=== PATIENT | male | born 1960 | race Caucasian/White ===

== ENCOUNTER 2016-11-13 21:04 | Emergency (ER) | payer OTHER ==
[2016-11-13 21:25] VITALS: TEMP 97.9; BMI 23.6
--- NOTE | 2016-11-13 21:49 | PDOC ---
History of Present Illness - General History Source: Patient Exam Limitations: No Limitations - History of Present Illness Initial Comments: 11/13/16 21:49 The patient is a 56 year old male, with significant past medical history of HIV (taken off meds 3 weeks ago while trying to switch medication under doctors supervision), who presents today via ambulance from [facility] complaining of nausea, chills, lightheadedness since 3pm. He notes that he had chills that he describes as twitching and trembling because he was so cold for 3 or 4 hours this afternoon. He notes that he had similar twitching when he was taken off of the HIV medications 3 weeks ago. Denies fever, vomiting, diarrhea. Denies chest pain, SOB. Allergies: Shrimp ROS General: +chills, lightheadedness. No fevers.no weakness, no weight loss HEENT: No change in vision. No sore throat,. No ear pain CardioVascular: No chest pain or shortness of breath Respiratory:No cough, or wheezing. Gastrointestinal: +nausea. vomiting, diarrhea or constipation, No rectal bleeding Genitourinary: No dysuria, hematuria, or frequency Musculoskeletal: No joint or muscle pain or swelling Neurologic: No headache, vertigo, dizziness or loss of consciousness Psychiatric: nor depression Skin: No rashes or easy bruising Endocrine: no increased thirst or abnormal weight change Allergic: no skin or latex allergy All other systems reviewed and normal Physical Exam General: Well-nourished well-developed individual, no acute distress HEENT: Throat: Normal, tonsils normal, no erythema or exudate Neck: Supple, no meningeal signs, no lymphadenopathy Eyes::Pupils equal reactive and round, extraocular motion intact Chest: Nontender to palpation Cardiac: S1-S2 normal, regular rate and rhythm, no murmurs rubs or gallops Respiratory: Lungs clear to auscultation bilateral Abdomen: Soft, nondistended, slightly increased bowel sounds, nontender to palpation diffusely Extremities: Warm, dry, no cyanosis, clubbing, or edema Skin: No rashes Neuro: Alert and oriented x3, nonfocal exam, grossly intact, normal gait Psych: Normal mood and affect <Brandy Foley - Last Filed: 11/13/16 21:49> - General History Source: Patient Exam Limitations: No Limitations - History of Present Illness Initial Comments: 11/13/16 22:27 A portion of this note was documented by scribe services under my direction. I have reviewed the details of the note, within reason, and agree with the documentation. The case summary and management plan written by me. Assessment and plan: This is a 56-year-old male who comes in from an urgent care center for shaking, nausea and not feeling well. By the time patient got here he was feeling better but then had another episode of similar symptoms. Patient was given some Xanax. Patient had an EKG which showed normal sinus rhythm and was completely normal Patient has history significant for HIV and was recently taken off of his HIV meds secondary to intolerable side effects and has been off meds for approximately 2-3 weeks. Patient said however his viral load is undetectable and his T cells are 800. Patient had a workup that was done which shows normal white count, normal chemistries, normal cardiac enzymes, and the normal urinalysis. Patient was referred back to his primary care doctor for follow-up tomorrow or the next day <Maritza Chandler I - Last Filed: 11/13/16 22:32> - General Chief Complaint: Nausea Stated Complaint: CHILLS AND NAUSEA Time Seen by Provider: 11/13/16 21:15 Past History <Brandy Foley - Last Filed: 11/13/16 21:49> - Past Medical History HIV: Yes Other medical history: PSORIASIS - Psycho/Social/Smoking Cessation Hx Anxiety: No Suicidal Ideation: No Smoking History: Never smoked Hx Alcohol Use: Yes (3 GLASSES OF WINE PER WEEK) Drug/Substance Use Hx: No Substance Use Type: None <Maritza Chandler I - Last Filed: 11/13/16 22:32> - Past Medical History Allergies/Adverse Reactions: Allergies Allergy/AdvReac Type Severity Reaction Status Date / Time shrimp Allergy Unknown Verified 11/13/16 21:13 walnut Allergy Unknown Verified 11/13/16 21:13 Home Medications: Ambulatory Orders NK [No Known Home Medication] 11/13/16 *Physical Exam - Vital Signs Last Vital Signs Temp Pulse Resp BP Pulse Ox 97.9 F 85 16 159/88 100 11/13/16 21:13 11/13/16 21:13 11/13/16 21:13 11/13/16 21:13 11/13/16 21:13 <Brandy Foley - Last Filed: 11/13/16 21:49> - Vital Signs Last Vital Signs Temp Pulse Resp BP Pulse Ox 97.9 F 85 16 159/88 100 11/13/16 21:13 11/13/16 21:13 11/13/16 21:13 11/13/16 21:13 11/13/16 21:13 <Maritza Chandler I - Last Filed: 11/13/16 22:32> ED Treatment Course - LABORATORY CBC & Chemistry Diagram: 11/13/16 21:30 11/13/16 21:30 <Brandy Foley - Last Filed: 11/13/16 21:49> - LABORATORY CBC & Chemistry Diagram: 11/13/16 21:30 11/13/16 21:30 <Maritza Chandler I - Last Filed: 11/13/16 22:32> *DC/Admit/Observation/Transfer - Attestations Scribe Attestion: 11/13/16 21:49 Documentation prepared by AGUSTIN Keen, acting as medical technician assistant for Maritza Chandler MD. <Brandy Foley - Last Filed: 11/13/16 21:49> - Discharge Dispostion Admit: No <Maritza Chandler I - Last Filed: 11/13/16 22:32> Diagnosis at time of Disposition: Anxiety attack - Discharge Dispostion Disposition: HOME Condition at time of disposition: Good - Patient Instructions Additional Instructions: If you continue to experience these symptoms make sure you follow-up with your primary care doctor tomorrow. Return to the emergency department immediately with ANY new, persistent or worsening symptoms. Continue any medications as previously prescribed by your physician. You should follow up with your primary doctor as soon as possible regarding today's emergency department visit. . Please make sure your doctor reviews the results of your emergency evaluation. Thank you for coming to the Emergency Department today for your care. It was a pleasure to see you today. Please note that your evaluation is INCOMPLETE until you follow-up with your doctor.
[2016-11-13 21:51] LABS: BASOPHIL 1.7 % (0-2.0); MCH 33.9 pg (25.7-33.7); MEAN CELL VOLUME 99.6 fl (80-96); MEAN PLT VOLUME 9.8 fl (7.5-11.1); NEUTROPHILS 62.7 % (42.8-82.8); PLATELET COUNT 175 K/MM3 (134-434); RDW 11.8 % (11.9-15.9); WHITE BLOOD COUNT 4.4 K/mm3 (4.0-10.0)
[2016-11-13] MEDS ORDERED: SODIUM CHLORIDE 1,000 ML IV ONE (21:51)
[2016-11-13 22:06] LABS: ALK PHOS 41 U/L (32-92); ANION GAP 5 (8-16); BILIRUBIN,TOTAL 0.5 mg/dl (0.2-1.0); CO2 26 mmol/L (22-28); CPK(DFH) 70 IU/L (38-174); CREATININE 0.9 mg/dl (0.6-1.3); GLUCOSE,RANDOM 117 mg/dl (74-106); SGOT/AST 28 U/L (10-42); SGPT/ALT 20 U/L (10-40); TOT PROT 6.4 g/dl (6.4-8.3)
[2016-11-13 22:08] VITALS: PULSE 76
[2016-11-13] MEDS ORDERED: ALPRAZolam 0.25 MG TABLET PO STA (22:10)
[2016-11-13] MEDS ORDERED: ALPRAZolam 0.25 MG TABLET ONE (22:10)
[2016-11-13 22:21] LABS: TROPONIN I (DFP) < 0.03 ng/ml (0.03-0.50)
[2016-11-13 22:25] LABS: URINE APPEARANCE Clear; URINE BILIRUBIN Negative (NEGATIVE); URINE BLOOD Negative (NEGATIVE); URINE COLOR YELLOW; URINE GLUCOSE (UA) Negative (NEGATIVE); URINE KETONE Negative (NEGATIVE); URINE LEUK ESTERASE Negative (NEGATIVE); URINE NITRITE Negative (NEGATIVE); URINE PROTEIN Negative (NEGATIVE); URINE UROBILINOGEN 0.2 E.U/dl (0.2-1.0)
[2016-11-13 22:30] VITALS: BP 125/83
--- NOTE | 2016-11-14 14:19 | EKG ---
Test Reason : Blood Pressure : / mmHG Vent. Rate : 076 BPM Atrial Rate : 076 BPM P-R Int : 166 ms QRS Dur : 090 ms QT Int : 378 ms P-R-T Axes : 051 053 055 degrees QTc Int : 425 ms NORMAL SINUS RHYTHM NO PREVIOUS ECGS AVAILABLE Confirmed by MD GUANACO, TRINITY ([id number]) on 11/14/2016 2:19:37 PM Referred By: DANILO Confirmed By:TRINITY BLANC MD
== END 2016-11-13 22:37 | disposition home or self-care (01) ==
LOC: FER 21:04
PROC: 3E0337Z Introduction of Electrolytic and Water Balance Substance into Peripheral Vein, Percutaneous Approach (ICD-10-PCS; principal; 2016-11-13)
DX: F41.0 Panic disorder [episodic paroxysmal anxiety] (principal); Z21 Asymptomatic human immunodeficiency virus [HIV] infection status
CPT/HCPCS: 36415; 80053; 81003; 82550; 84484; 85025; 93005; 99284-25

== ENCOUNTER 2023-02-16 17:09 | Emergency (ER) | payer OTHER ==
[2023-02-16 17:21] VITALS: BP 155/82; PULSE 90; RESP 20; TEMP 98.2; BMI 22.8
[2023-02-16 18:03] LABS: HEMATOCRIT 45.5 % (35.4-49); HEMOGLOBIN 15.3 G/dL (11.7-16.9); MCH 36.6 pg (25.7-33.7); MCHC 33.7 g/dl (32.0-35.9); MEAN CELL VOLUME 108.5 fl (80-96); MEAN PLT VOLUME 10.1 fl (7.5-11.1); PLATELET COUNT 194.2 10^3/uL (134-434); RBC 4.19 10^6/uL (4.00-5.60); RDW 12.5 % (11.9-15.9)
[2023-02-16 18:16] LABS: ALBUMIN 4.2 g/dl (3.4-5.0); BILIRUBIN,TOTAL 0.3 mg/dl (0.2-1); CALCIUM 9.1 mg/dl (8.5-10.1); POTASSIUM 4.2 mmol/L (3.5-5.1); SGOT/AST 16.2 U/L (15-37); SGPT/ALT 17.2 U/L (7-52); TOT PROT 6.6 g/dl (6.4-8.2)
[2023-02-16 20:12] LABS: PLATELET ESTIMATE ADEQUATE
== END 2023-02-16 18:48 | disposition home or self-care (01) ==
LOC: FER 17:09
DX: M62.838 Other muscle spasm (principal); R53.83 Other fatigue; R25.3 Fasciculation
CPT/HCPCS: 36415; 80053; 85027; 99283-25

== ENCOUNTER 2024-06-06 16:48 | Emergency (ER) | payer OTHER ==
[2024-06-06 18:05] VITALS: BP 139/85; PULSE 65; RESP 18; TEMP 98.6; BMI 23.6
[2024-06-06 18:17] LABS: HEMOGLOBIN 16.6 G/dL (11.7-16.9); MCH 34.7 pg (25.7-33.7); MCHC 31.9 g/dl (32.0-35.9); MEAN CELL VOLUME 108.6 fl (80-96); MEAN PLT VOLUME 10.1 fl (7.5-11.1); RBC 4.79 10^6/uL (4.00-5.60); RDW 12.8 % (11.9-15.9); WHITE BLOOD COUNT 6.3 10^3/uL (4.0-10.8)
[2024-06-06 18:37] LABS: BILIRUBIN,TOTAL 0.4 mg/dl (0.2-1); CALCIUM 9.8 mg/dl (8.5-10.1); POTASSIUM 4.2 mmol/L (3.5-5.1)
[2024-06-06 18:55] LABS: PLATELET ESTIMATE ADEQUATE
== END 2024-06-06 22:11 | disposition home or self-care (01) ==
LOC: FER 16:48
DX: F41.0 Panic disorder [episodic paroxysmal anxiety] (principal); R42 Dizziness and giddiness; R00.2 Palpitations; Z20.822 Contact with and (suspected) exposure to COVID-19
CPT/HCPCS: 0241U-QW; 36415; 70470-TC; 71046-TC-FY; 80053; 84443; 84484; 85027; 93005; 99285-25; Q9967